=== PATIENT | female | born 1955 | race Hispanic/Latino ===

== ENCOUNTER 2017-07-04 16:49 | Emergency (ER) | payer OTHER ==
[2017-07-04] MEDS ORDERED: NA CHLORIDE 0.9% 1,000 ML ONE (17:35)
--- NOTE | 2017-07-04 17:35 | RAD REPORT ---
EXAM DESCRIPTION: RAD - Chest Single View - 07/04/2017 5:28 pm CLINICAL HISTORY: Cough, shortness of breath COMPARISON: None. TECHNIQUE: AP portable chest image was obtained 1719 hours . FINDINGS: Lungs are clear. Heart and vasculature are normal. No measurable pleural effusion and no p neumothorax. No gross bony abnormality seen. No acute aortic findings suspected. IMPRESSION: No acute cardiopulmonary process.
--- NOTE | 2017-07-04 17:37 | EKG ---
Test Date: 2017-07-04 Test Time: 17:17:48 [employer]: LING MEASUREMENT RESULTS: Intervals: Rate: 83 GA: 178 QRSD: 72 QT: 368 QTc: 432 [place]: P: 65 GA: 178 QRS: 35 T: 50 INTERPRETIVE STATEMENTS: Normal sinus rhythm Normal ECG No previous ECG available for comparison Electronically Signed On 07-04-17 17:36:36 CDT by Clifford Velásquez
[2017-07-04 17:40] LABS: Absolute Lymphocytes (CBC) 3.6 K/uL (0.7-4.9); Absolute Monocytes 0.5 K/uL (0.1-1.3); Absolute Neutrophil 6.3 K/uL (1.8-8.0); Basophils % 0.5 % (0-1.3); Eosinophils % 2.6 % (0-4.4); Hematocrit 42.9 % (36.0-45.0); Lymphocytes % 33.7 % (15.3-44.8); MCV 87.2 fL (80-100); MPV 8.3 fL (7.6-11.3); Monocytes % 4.3 % (3.3-12.3); RBC Red Blood Cell Count 4.92 M/uL (3.86-4.86)
--- NOTE | 2017-07-04 17:41 | RAD REPORT ---
EXAM DESCRIPTION: CT - Ct Stroke Brain Wo Cont - 07/04/2017 5:34 pm CLINICAL HISTORY: TIA, CVA COMPARISON: None. TECHNIQUE: All CT scans are performed using dose optimization technique as appropriate and may inclu de automated exposure control or mA/KV adjustment according to patient size. FINDINGS: No intracranial hemorrhage, hydrocephalus or extra-axial fluid collection.No areas of brai n edema or evidence of midline shift. The paranasal sinuses and mastoids are clear. The calvarium is intact. IMPRESSION: No acute intracranial abnormality.
[2017-07-04 17:48] LABS: Protime INR 0.99
[2017-07-04 18:06] LABS: Bicarbonate 26 mEq/L (21-31); Glucose Level 137 mg/dL (65-120); Potassium 3.8 mEq/L (3.6-5.0); Sodium Level 138 mEq/L (135-145)
[2017-07-04 18:14] LABS: ALT/SGPT 17 IU/L (10-60); AST/SGOT 23 IU/L (10-42); Albumin 3.8 g/dL (3.2-5.5); Alkaline Phosphatase 85 IU/L (42-121); BUN Blood Urea Nitrogen 10 mg/dL (6-20); Bilirubin Direct 0.1 mg/dL (0-0.2); Bilirubin Total 0.4 mg/dL (0.3-1.2); C-Reactive Protein 27.6 mg/L (<10.0); Creatine Phosphokinase 54 IU/L (22-269); Magnesium 1.6 mg/dL (1.8-2.5); Protein, Total 7.9 g/dL (6.0-8.3)
[2017-07-04 18:15] LABS: CKMB Creatine Kinase MB 0.9 ng/ml (0.3-4.0)
[2017-07-04] MEDS ORDERED: CIPROFLOXACIN HCL 500 MG TAB ONE (18:33)
[2017-07-04] MEDS ORDERED: MAGNESIUM SULFATE 1 gm IVPB 1 GM/100 ML BAG IV ONE (18:33)
[2017-07-04 18:34] LABS: Urine Blood NEGATIVE (NEG); Urine Glucose NEGATIVE (NEG); Urine Protein NEGATIVE (NEG); Urine Specific Gravity 1.015 (1.005-1.030); Urine pH 5.5 (5.0-7.0)
[2017-07-04] MEDS ORDERED: CEFTRIAXONE/SWI 1gm 1 GM/10 ML SYR ONE (18:34)
--- NOTE | 2017-07-04 18:48 | ER ---
Nurse's Notes [facility] Name: Diane Salinas Age: 61 yrs Sex: Female : 1955 Arrival Date: 07/04/2017 Time: 16:53 Bed 8 Private MD: Out, [facility] Diagnosis: Weakness;Ventral hernia;Type 2 diabetes mellitus;Hypomagnesemia;Cystitis Presentation: 07/04 16:58 Presenting complaint: Patient states: " I got on a massage chair on Friday and I ph think it messed my back up. My tailbone and my back were numb afterwards, then today at around 3:30 my hands and face felt numb." Pt reports that symptoms are intermittent, also reports nausea, denies V/D, pt also states, " I keep feeling like a need to poop and only a little comes out.". Transition of care: patient was not received from another setting of care. Onset of symptoms was July 04, 2017. Risk Assessment: Do you want to hurt yourself or someone else? Patient reports no desire to harm self or others. Initial Sepsis Screen: Does the patient meet any 2 criteria? No. Patient's initial sepsis screen is negative. Does the patient have a suspected source of infection? No. Patient's initial sepsis screen is negative. Care prior to arrival: None. 16:58 Method Of Arrival: Ambulatory 16:58 Acuity: ALYSSA 3 ph Historical: - Allergies: 17:04 Codeine; ph - PMHx: 17:04 Hernia; Diabetes - NIDDM; Hypothyroidism; Glaucoma; GERD; ph - PSHx: 17:04 colon resection; Cholecystectomy; Hernia repair; right ovary removed; ph - Immunization history:: Adult Immunizations up to date. - Social history:: Smoking status: Patient/guardian denies using tobacco. - Ebola Screening: : No symptoms or risks identified at this time. Screenin:00 Abuse screen: Denies threats or abuse. Denies injuries from another. Nutritional hb screening: No deficits noted. Tuberculosis screening: No symptoms or risk factors identified. Fall Risk None identified. Assessment: 17:00 General: Appears in no apparent distress. Behavior is calm, cooperative. Pain: Denies hb pain. Neuro: Level of Consciousness is awake, alert, obeys commands, Oriented to person, place, time, situation. Cardiovascular: Heart tones S1 S2 present Capillary refill < 3 seconds Patient's skin is warm and dry. Respiratory: Airway is patent Trachea midline Respiratory effort is even, unlabored, Respiratory pattern is regular, symmetrical, Breath sounds are clear bilaterally. GI: No signs and/or symptoms were reported involving the gastrointestinal system. : No signs and/or symptoms were reported regarding the genitourinary system. EENT: No signs and/or symptoms were reported regarding the EENT system. Derm: Skin is intact, is healthy with good turgor, Skin is pink, warm \\T\\ dry. Musculoskeletal: No signs and/or symptoms reported regarding the musculoskeletal system. 17:50 Reassessment: Pt returned from radiology, CT completed but pt was unable to complete hb MRI. Pt reports she has anxiety and difficulty breathing when supine due to her full abdomen. Dr. Villareal notified. 18:24 Reassessment: Patient appears in no apparent distress at this time. Patient and/or hb family updated on plan of care and expected duration. Pain level reassessed. Patient is alert, oriented x 3, equal unlabored respirations, skin warm/dry/pink. 19:45 General: Appears in no apparent distress. Behavior is calm, cooperative. Pain: Denies ea pain. Neuro: Level of Consciousness is awake, alert, obeys commands, Oriented to person, place, time, situation. Cardiovascular: Heart tones S1 S2 present Patient's skin is warm and dry. Respiratory: Airway is patent Respiratory effort is even, unlabored, Respiratory pattern is regular, symmetrical. GI: No signs and/or symptoms were reported involving the gastrointestinal system. : No signs and/or symptoms were reported regarding the genitourinary system. EENT: No signs and/or symptoms were reported regarding the EENT system. Derm: Skin is pink, warm \\T\\ dry. Musculoskeletal: No signs and/or symptoms reported regarding the musculoskeletal system. 20:30 Reassessment: Patient and/or family updated on plan of care and expected duration. Pain ea level reassessed. Patient is alert, oriented x 3, equal unlabored respirations, skin warm/dry/pink. 21:06 Reassessment: Patient and/or family updated on plan of care and expected duration. Pain ea level reassessed. Patient is alert, oriented x 3, equal unlabored respirations, skin warm/dry/pink. Discharge instructions given to patient, verbalized the understanding of instruction. Vital Signs: 17:02 BP 167 / 83; Pulse 88; Resp 16; Temp 97.7; Pulse Ox 99% on R/A; Weight 117.93 kg; ph Height 5 ft. 0 in. (152.40 cm); 18:15 BP 147 / 76; Pulse 70; Resp 15; Pulse Ox 100% on R/A; Pain 0/10; hb 19:45 BP 129 / 77; Pulse 79; Resp 18; Pulse Ox 100% on R/A; Pain 0/10; ea 20:27 BP 130 / 69; Pulse 70; Resp 18; Pulse Ox 100% on R/A; Pain 0/10; ea 21:00 BP 134 / 74; Pulse 72; Resp 18; Temp 97.6(O); Pulse Ox 98% on R/A; Pain 0/10; ea 17:02 Body Mass Index 50.78 (117.93 kg, 152.40 cm) ph ED Course: 16:53 Patient arrived in ED. mr 16:53 Out, [facility] is Private Physician. mr 17:00 Patient has correct armband on for positive identification. Placed in gown. Bed in low hb position. Call light in reach. Side rails up X 1. 17:00 Inserted saline lock: 20 gauge in right antecubital area, using aseptic technique. hb Blood collected. 17:02 Triage completed. ph 17:04 Arm band placed on. ph 17:08 Jude Villareal MD is Attending Physician. gerri 17:[address] vm2 17:19 Kathleen Kelley RN is Primary Nurse. sv 17:25 X-ray completed. Portable x-ray completed in exam room. Patient tolerated procedure mh1 well. 17:26 XRAY Chest (1 view) In Process Unspecified. EDMS 17:33 CT Stroke Brain w/o Contrast In Process Unspecified. EDMS 17:42 Primary Nurse role handed off by Kathleen Kelley RN sv 17:42 Ariana Pham, MASOUD is Primary Nurse. sv 18:27 Urine collected: clean catch specimen, cloudy, mary colored. jb1 18:48 Waqar Watson MD is Referral Physician. gerri 18:48 Patel Marie MD is Referral Physician. gerri 19:59 Primary Nurse role handed off by Ariana Pham RN rg2 21:00 No provider procedures requiring assistance completed. ea 21:05 IV discontinued, intact, bleeding controlled, No redness/swelling at site. Pressure ea dressing applied. 21:16 Karina Adams, RN is Primary Nurse. ea Administered Medications: 17:55 Drug: foLIC Acid 1 mg Route: IVPB; Site: right antecubital; hb 19:45 Follow up: Response: No adverse reaction; IV Status: Completed infusion ea 17:55 Drug: NS 0.9% 1000 ml Route: IV; Rate: 1 bolus; Site: right antecubital; hb 19:45 Follow up: Response: No adverse reaction; IV Status: Completed infusion ea 18:39 Drug: Rocephin - (cefTRIAXone) 1 grams Route: IVPB; Infused Over: 30 mins; Site: right hb antecubital; 19:45 Follow up: Response: No adverse reaction; IV Status: Completed infusion ea 18:39 Drug: Cipro 500 mg Route: PO; hb 19:24 Follow up: Response: No adverse reaction ea 18:39 Drug: Magnesium Sulfate 1 grams Route: IVPB; Infused Over: 1 hrs; Site: right hb antecubital; 20:55 Follow up: Response: No adverse reaction; IV Status: Completed infusion ea Outcome: 18:48 Discharge ordered by MD. talley 21:08 Condition: improved ea 21:08 Discharge instructions given to patient, Instructed on discharge instructions, follow up and referral plans. medication usage, Demonstrated understanding of instructions, follow-up care, medications, Prescriptions given X 2. 21:15 Discharged to home ambulatory. ea 21:21 Patient left the ED. ea Signatures: Dispatcher [employer] EDMS Donald Barnard jb1 Velasquez Sparks rg2 Kathleen Kelley RN RN Jude Villareal MD MD cha Rivera, Maria Shellie Segovia 1 Patricia Patton RN RN Ariana Pham, MASOUD RN Robina Saldana [facility] Karina Adams RN RN ea Corrections: (The following items were deleted from the chart) 17:03 16:58 Presenting complaint: Patient states: " I got on a massage chair on Friday and ph I think it messed my back up. My tailbone and my back were numb afterwards, then today at around 3:30 my hands and face felt numb." Pt reports that symptoms are intermittent, also reports nausea, cherri V/D ph 21:19 21:08 Discharged to home ambulatory, ea ea
--- NOTE | 2017-07-04 18:49 | EDPHYS ---
Physician Documentation [facility] Name: Diane Salinas Age: 61 yrs Sex: Female : 1955 Arrival Date: 07/04/2017 Time: 16:53 Bed 8 Private MD: Out, [facility] ED Physician Jude Villareal HPI: 07/04 18:07 This 61 yrs old Female presents to ER via Ambulatory with complaints of gerri Numbness Of Arm, Numbness Of Face, Back Pain. Historical: - Allergies: 17:04 Codeine; ph - PMHx: 17:04 Hernia; Diabetes - NIDDM; Hypothyroidism; Glaucoma; GERD; ph - PSHx: 17:04 colon resection; Cholecystectomy; Hernia repair; right ovary removed; ph - Immunization history:: Adult Immunizations up to date. - Social history:: Smoking status: Patient/guardian denies using tobacco. - Ebola Screening: : No symptoms or risks identified at this time. ROS: 18:08 Constitutional: Negative for fever, chills, and weight loss, Eyes: Negative for injury, gerri pain, redness, and discharge, ENT: Negative for injury, pain, and discharge, Neck: Negative for injury, pain, and swelling, Cardiovascular: Negative for chest pain, palpitations, and edema, Respiratory: Negative for shortness of breath, cough, wheezing, and pleuritic chest pain, Abdomen/GI: Negative for abdominal pain, nausea, vomiting, diarrhea, and constipation, Back: Negative for injury and pain, : Negative for injury, bleeding, discharge, and swelling, MS/Extremity: Negative for injury and deformity, Skin: Negative for injury, rash, and discoloration, Psych: Negative for depression, anxiety, suicide ideation, homicidal ideation, and hallucinations, Allergy/Immunology: Negative for hives, rash, and allergies, Endocrine: Negative for neck swelling, polydipsia, polyuria, polyphagia, and marked weight changes, Hematologic/Lymphatic: Negative for swollen nodes, abnormal bleeding, and unusual bruising. 18:08 Neuro: Positive for numbness, weakness, non focal. Exam: 18:08 Constitutional: This is a well developed, well nourished patient who is awake, alert, gerri and in no acute distress. Head/Face: Normocephalic, atraumatic. Eyes: Pupils equal round and reactive to light, extra-ocular motions intact. Lids and lashes normal. Conjunctiva and sclera are non-icteric and not injected. Cornea within normal limits. Periorbital areas with no swelling, redness, or edema. ENT: Nares patent. No nasal discharge, no septal abnormalities noted. Tympanic membranes are normal and external auditory canals are clear. Oropharynx with no redness, swelling, or masses, exudates, or evidence of obstruction, uvula midline. Mucous membranes moist. Neck: Trachea midline, no thyromegaly or masses palpated, and no cervical lymphadenopathy. Supple, full range of motion without nuchal rigidity, or vertebral point tenderness. No Meningismus. Chest/axilla: Normal chest wall appearance and motion. Nontender with no deformity. No lesions are appreciated. Cardiovascular: Regular rate and rhythm with a normal S1 and S2. No gallops, murmurs, or rubs. Normal PMI, no JVD. No pulse deficits. Respiratory: Lungs have equal breath sounds bilaterally, clear to auscultation and percussion. No rales, rhonchi or wheezes noted. No increased work of breathing, no retractions or nasal flaring. Back: No spinal tenderness. No costovertebral tenderness. Full range of motion. Female : Normal external genitalia. Skin: Warm, dry with normal turgor. Normal color with no rashes, no lesions, and no evidence of cellulitis. MS/ Extremity: Pulses equal, no cyanosis. Neurovascular intact. Full, normal range of motion. Neuro: Awake and alert, GCS 15, oriented to person, place, time, and situation. Cranial nerves II-XII grossly intact. Motor strength 5/5 in all extremities. Sensory grossly intact. Cerebellar exam normal. Normal gait. Psych: Awake, alert, with orientation to person, place and time. Behavior, mood, and affect are within normal limits. 18:08 Abdomen/GI: Inspection: distension, Bowel sounds: normal, Palpation: nontender, in all quadrants, Liver: no appreciated palpable abnormalities, Hernia: noted in the paraumbilical area and umbilical area, incarceration, is not appreciated, tenderness, is not appreciated, bowel sounds are appreciated on auscultation. Vital Signs: 17:02 BP 167 / 83; Pulse 88; Resp 16; Temp 97.7; Pulse Ox 99% on R/A; Weight 117.93 kg; ph Height 5 ft. 0 in. (152.40 cm); 18:15 BP 147 / 76; Pulse 70; Resp 15; Pulse Ox 100% on R/A; Pain 0/10; hb 19:45 BP 129 / 77; Pulse 79; Resp 18; Pulse Ox 100% on R/A; Pain 0/10; ea 20:27 BP 130 / 69; Pulse 70; Resp 18; Pulse Ox 100% on R/A; Pain 0/10; ea 21:00 BP 134 / 74; Pulse 72; Resp 18; Temp 97.6(O); Pulse Ox 98% on R/A; Pain 0/10; ea 17:02 Body Mass Index 50.78 (117.93 kg, 152.40 cm) ph MDM: 17:08 Patient medically screened. [facility] 07/04 17:12 Order name: Basic Metabolic Panel; Complete Time: 18:20 [facility] 07/04 17:12 Order name: BNP; Complete Time: 18:20 [facility] 07/04 17:12 Order name: CBC with Diff; Complete Time: 18:20 [facility] 07/04 17:12 Order name: Ckmb; Complete Time: 18:20 [facility] 07/04 17:12 Order name: CPK; Complete Time: 18:20 [facility] 07/04 17:12 Order name: LFT's; Complete Time: 18:20 [facility] 07/04 17:12 Order name: Magnesium; Complete Time: 18:20 [facility] 07/04 17:12 Order name: PT-INR; Complete Time: 18:10 [facility] 07/04 17:12 Order name: Ptt, Activated; Complete Time: 18:10 [facility] 07/04 17:12 Order name: Troponin (emerg Dept Use Only); Complete Time: 18:20 [facility] 07/04 17:12 Order name: Sed Rate; Complete Time: 18:20 [facility] 07/04 17:12 Order name: CRP; Complete Time: 18:20 [facility] 07/04 17:12 Order name: Urine Culture [facility] 07/04 18:23 Order name: Urine Dipstick--Ancillary (enter results); Complete Time: 18:47 07/04 17:12 Order name: XRAY Chest (1 view); Complete Time: 18:10 [facility] 07/04 17:12 Order name: EKG; Complete Time: 17:13 [facility] 07/04 17:12 Order name: Cardiac monitoring; Complete Time: 17:37 [facility] 07/04 17:12 Order name: EKG - Nurse/Tech; Complete Time: 17:37 [facility] 07/04 17:12 Order name: IV Saline Lock; Complete Time: 17:37 [facility] 07/04 17:12 Order name: Labs collected and sent; Complete Time: 17:37 [facility] 07/04 17:12 Order name: O2 Per Protocol; Complete Time: 17:37 [facility] 07/04 17:12 Order name: O2 Sat Monitoring; Complete Time: 17:37 [facility] 07/04 17:12 Order name: Urine Dipstick-Ancillary (obtain specimen); Complete Time: 18:28 [facility] 07/04 17:12 Order name: CT Stroke Brain w/o Contrast; Complete Time: 18:10 [facility] Administered Medications: 17:55 Drug: foLIC Acid 1 mg Route: IVPB; Site: right antecubital; hb 19:45 Follow up: Response: No adverse reaction; IV Status: Completed infusion ea 17:55 Drug: NS 0.9% 1000 ml Route: IV; Rate: 1 bolus; Site: right antecubital; hb 19:45 Follow up: Response: No adverse reaction; IV Status: Completed infusion ea 18:39 Drug: Rocephin - (cefTRIAXone) 1 grams Route: IVPB; Infused Over: 30 mins; Site: right hb antecubital; 19:45 Follow up: Response: No adverse reaction; IV Status: Completed infusion ea 18:39 Drug: Cipro 500 mg Route: PO; hb 19:24 Follow up: Response: No adverse reaction ea 18:39 Drug: Magnesium Sulfate 1 grams Route: IVPB; Infused Over: 1 hrs; Site: right hb antecubital; 20:55 Follow up: Response: No adverse reaction; IV Status: Completed infusion ea Disposition: 07/04/17 18:48 Discharged to Home. Impression: Weakness, Ventral hernia, Type 2 diabetes mellitus, Hypomagnesemia, Cystitis. - Condition is Stable. - Discharge Instructions: Type 2 Diabetes Mellitus, Adult, Dysuria, Hypomagnesemia, Weakness, Fatigue, Weakness, [id number], Aspirin and Your Heart, Type 2 Diabetes Mellitus, Adult, [id number]. - Prescriptions for Folic Acid 1 mg Oral Tablet - take 1 tablet by ORAL route once daily; 30 tablet. Cipro 500 mg Oral Tablet - take 1 tablet by ORAL route every 12 hours for 7 days; 14 tablet. - Medication Reconciliation Form, Thank You Letter, Antibiotic Education, Prescription Opioid Use form. - Follow up: Private Physician; When: 2 - 3 days; Reason: Recheck today's complaints, Continuance of care, Re-evaluation by your physician. Follow up: Waqar Watson; When: 2 - 3 days; Reason: Recheck today's complaints, Re-evaluation by your physician. Follow up: Patel Marie; When: 2 - 3 days; Reason: Recheck today's complaints, Re-evaluation by your physician. - Problem is new. - Symptoms have improved. Signatures: Dispatcher [employer] [facility] Jude Villareal MD MD cha Hall, Patricia, RN RN Ariana Cunningham, RN RN Karina Alfaro RN RN ea Corrections: (The following items were deleted from the chart) 18:59 17:13 Brain Wo Cont+MRI.RAD.BRZ ordered. [facility] 21:21 18:48 07/04/2017 18:48 Discharged to Home. Impression: Weakness; Ventral hernia; Type 2 ea diabetes mellitus; Hypomagnesemia; Cystitis. Condition is Stable. Discharge Instructions: Type 2 Diabetes Mellitus, Adult, Weakness, Fatigue, Weakness, [id number], Aspirin and Your Heart, Type 2 Diabetes Mellitus, Adult, [id number]-[id number], Dysuria, Hypomagnesemia. Prescriptions for Folic Acid 1 mg Oral Tablet - take 1 tablet by ORAL route once daily; 30 tablet, Cipro 500 mg Oral Tablet - take 1 tablet by ORAL route every 12 hours for 7 days; 14 tablet. and Forms are Medication Reconciliation Form, Thank You Letter, Antibiotic Education, Prescription Opioid Use. Follow up: Private Physician; When: 2 - 3 days; Reason: Recheck today's complaints, Continuance of care, Re-evaluation by your physician. Follow up: Waqar Watson; When: 2 - 3 days; Reason: Recheck today's complaints, Re-evaluation by your physician. Follow up: Patel Marie; When: 2 - 3 days; Reason: Recheck today's complaints, Re-evaluation by your physician. Problem is new. Symptoms have improved. gerri
== END 2017-07-04 21:21 | disposition home or self-care (01) ==
LOC: ER 16:49
DX: K43.9 Ventral hernia without obstruction or gangrene (principal); N30.90 Cystitis, unspecified without hematuria; E83.42 Hypomagnesemia; E11.9 Type 2 diabetes mellitus without complications; Z88.5 Allergy status to narcotic agent
CPT/HCPCS: 36415; 70450; 71045; 80048; 80076; 81003; 82550; 82553; 83735; 83880; 84484; 85025; 85610; 85652; 85730; 86140; 87086; 87088; 93005; 96365; 96367; 99284; J0696; J3475; J7030; 96361; 96368